=== PATIENT | male | born 1990 ===

== ENCOUNTER 2017-02-14 02:36 | Emergency (ER) | payer BC ==
[2017-02-14 02:50] VITALS: BP 155/64; PULSE 68; RESP 18; TEMP 97.5; O2SAT 100
--- NOTE | 2017-02-14 03:48 | ED PDOC ---
HPI: Chest Pain Time Seen by Provider: 02/14/17 02:59 Chief Complaint (Nursing): Chest Pain Chief Complaint (Provider): chest pain History Per: Patient History/Exam Limitations: no limitations Onset/Duration Of Symptoms: Days (1 week ) Current Symptoms Are (Timing): Still Present Additional Complaint(s): 26yo male with no PMHx or FHx presents to the ED with c/o constant chest pain x 1 week. Patient states pain is worse when he moves. Pain is non-radiating and not associated with SOB or diaphoresis. Denies any hx of smoking. Past Medical History Reviewed: Historical Data, Nursing Documentation, Vital Signs Vital Signs: Last Vital Signs Temp 97.5 F L 02/14/17 02:48 Pulse 68 02/14/17 02:48 Resp 18 02/14/17 02:48 BP 155/64 H 02/14/17 02:48 Pulse Ox 100 02/14/17 03:53 - Medical History PMH: No Chronic Diseases - Surgical History Surgical History: Hernia Repair (right inguinal) - Family History Family History: States: No Known Family Hx - Social History Current smoker - smoking cessation education provided: No Ex-Smoker (has not smoked in the last 12 months): No - Home Medications Home Medications: Ambulatory Orders Medication Instructions Recorded No Known Home Med [No Known Home 01/20/15 Med] - Allergies Allergies/Adverse Reactions: Allergies Allergy/AdvReac Type Severity Reaction Status Date / Time No Known Allergies Allergy Verified 01/20/15 20:46 Review of Systems ROS Statement: Except As Marked, All Systems Reviewed And Found Negative Constitutional: Positive for: Other (no diaphoresis ) Cardiovascular: Positive for: Chest Pain Respiratory: Negative for: Shortness of Breath Physical Exam - Reviewed Nursing Documentation Reviewed: Yes Vital Signs Reviewed: Yes - Physical Exam Appears: Positive for: Well, No Acute Distress Head Exam: Positive for: ATRAUMATIC, NORMAL INSPECTION, NORMOCEPHALIC Skin: Positive for: Normal Color, Warm, Dry Eye Exam: Positive for: Normal appearance, EOMI, PERRL ENT: Positive for: Normal ENT Inspection Neck: Positive for: Normal, Painless ROM, Supple Cardiovascular/Chest: Positive for: Regular Rate, Rhythm, Other (chest wall tender to palpation ). Negative for: Murmur, Tachycardia Respiratory: Positive for: Normal Breath Sounds. Negative for: Wheezing, Respiratory Distress Gastrointestinal/Abdominal: Positive for: Normal Exam, Bowel Sounds, Soft. Negative for: Tenderness Back: Positive for: Normal Inspection. Negative for: L CVA Tenderness, R CVA Tenderness Extremity: Positive for: Normal ROM. Negative for: Deformity, Swelling Neurologic/Psych: Positive for: Alert, Oriented. Negative for: Motor/Sensory Deficits - ECG O2 Sat by Pulse Oximetry: 100 Pulse Ox Interpretation: Normal (RA) Medical Decision Making Medical Decision Makin: Impression: musculoskeletal chest pain Plan: CXR EKG Motrin 600mg PO reassess 0346: CXR and EKG are normal. Patient is stable for discharge. Scribe Attestation: Documented by Cindy Kumar acting as a scribe for Juvenal Solo MD. Provider Scribe Attestation: All medical record entries made by the Scribe were at my direction and personally dictated by me. I have reviewed the chart and agree that the record accurately reflects my personal performance of the history, physical exam, medical decision making, and the department course for this patient. I have also personally directed, reviewed, and agree with the discharge instructions and disposition. Disposition - Clinical Impression Clinical Impression: Chest wall pain, Musculoskeletal chest pain - Patient ED Disposition Is Patient to be Admitted: No - Disposition Referrals: Asia Toribio MD [Primary Care Provider] - Disposition: Routine/Home Disposition Time: 03:46 Condition: STABLE Instructions: Chest Wall Pain (ED)
--- NOTE | 2017-02-14 10:34 | RAD ---
HISTORY: Chest pain. COMPARISON: 08/21/2013. FINDINGS: LUNGS: No active pulmonary disease. PLEURA: No significant pleural effusion identified, no pneumothorax apparent. CARDIOVASCULAR: Normal. OSSEOUS STRUCTURES: No significant abnormalities. VISUALIZED UPPER ABDOMEN: Normal. OTHER FINDINGS: None. IMPRESSION: No active disease. No significant interval change compared to the prior examination(s).
== END 2017-02-14 03:53 | disposition home or self-care (01) ==
LOC: H.ER 02:36
DX: R07.9 Chest pain, unspecified (principal); Z87.891 Personal history of nicotine dependence

== ENCOUNTER 2017-04-07 20:48 | Emergency (ER) | payer BC ==
[2017-04-07 21:42] VITALS: BMI 22.4
--- NOTE | 2017-04-07 21:44 | ED PDOC ---
Lower Extremity Pain/Injury Time Seen by Provider: 04/07/17 21:30 Chief Complaint (Nursing): Lower Extremity Problem/Injury Chief Complaint (Provider): Lower Extremity Problem/Injury History Per: Patient History/Exam Limitations: no limitations Onset/Duration Of Symptoms: Days (x2 days) Current Symptoms Are (Timing): Still Present Additional Complaint(s): 26 y/o male presents to the emergency department with a complaint of a right ankle and foot pain since yesterday.. Patient states he was trying to prevent someone else from falling but tripped himself causing the injury. He denies taking medications for the relief of pain. Patient denies any numbness or tingling to affected area. PMD: Dr. Catarino SHELDON Past Medical History Reviewed: Historical Data, Nursing Documentation, Vital Signs - Medical History PMH: No Chronic Diseases - Surgical History Surgical History: Hernia Repair (right inguinal) - Family History Family History: States: No Known Family Hx - Living Arrangements Living Arrangements: With Family - Social History Current smoker - smoking cessation education provided: No Alcohol: Occasional Drugs: Denies - Home Medications Home Medications: Ambulatory Orders Medication Instructions Recorded No Known Home Med [No Known Home 01/20/15 Med] - Allergies Allergies/Adverse Reactions: Allergies Allergy/AdvReac Type Severity Reaction Status Date / Time No Known Allergies Allergy Verified 01/20/15 20:46 Wells Criteria for PE - Wells Criteria for Pulmonary Embolism Clinical Signs and Symptoms of DVT: No P.E is #1 Diagnosis, or Equally Likely: No Heart Rate >100: No Immobilization at least 3 days;Surgery previous 4 weeks: No Previous, objectively diagnosed PE or DVT: No Hemoptysis: No Malignancy w/treatment within 6 months, or palliative: No Total Score: 0 Review of Systems ROS Statement: Except As Marked, All Systems Reviewed And Found Negative Musculoskeletal: Positive for: Foot Pain (Right foot and ankle pain) Physical Exam - Reviewed Nursing Documentation Reviewed: Yes Vital Signs Reviewed: Yes - Physical Exam Appears: Positive for: Well, Non-toxic, No Acute Distress Respiratory: Negative for: Respiratory Distress Extremity: Positive for: Other (Diffuse tenderness and swelling to right foot and ankle region, decreased range of motion of right ankle, normal distal sensation, normal capillary refill, palpable DP pulse, no calf swelling or tenderness, full range of motion of right hip and right knee) Neurologic/Psych: Positive for: Alert, Oriented - ECG O2 Sat by Pulse Oximetry: 98 (RA) Pulse Ox Interpretation: Normal - Other Rad Right foot and ankle x-ray X-Ray: Interpreted by Me, Viewed By Me X-Ray Interpretation: no acute fx, no dis Medical Decision Making Medical Decision Making: Time: 21:30 Initial Impression: 26 y/o male with pain to the right ankle Initial Plan: --Ankle Right 3 Views (RAD) --Foot Right 3 Views (RAD) --Pain meds declined Patient was seen by podiatry resident at bedside, Dr. La. X-rays reviewed by resident - no acute fx or dislocation noted. Ashford dressing applied to right foot and ankle region by resident. Crutches declined. Advised OTC NSAID' s for pain. Patient was referred to podiatry clinic for follow up. Scribe Attestation: Documented by Sheila Navarro acting as a scribe for Mariana Betancourt PA-C. Provider Scribe Attestation: All medical record entries made by the Scribe were at my direction and personally dictated by me. I have reviewed the chart and agree that the record accurately reflects my personal performance of the history, physical exam, medical decision making, and the department course for this patient. I have also personally directed, reviewed, and agree with the discharge instructions and disposition. Disposition - Clinical Impression Clinical Impression: Foot sprain, Ankle sprain - Patient ED Disposition Is Patient to be Admitted: No Counseled Patient/Family Regarding: Studies Performed, Diagnosis, Need For Followup, Rx Given - Disposition Referrals: Podiatry Clinic [Outside] Disposition: Routine/Home Disposition Time: 23:19 Condition: STABLE Additional Instructions: Ice, rest and elevate affected area. Advil or tylenol as needed for pain. Follow up with podiatry clinic in 2-3 days. Instructions: Ankle Sprain (ED), Foot Sprain (ED)
[2017-04-07 21:45] VITALS: O2SAT 98
[2017-04-07 21:54] VITALS: BP 120/82; PULSE 68; RESP 14; TEMP 98.4
--- NOTE | 2017-04-08 09:10 | CP.PCM.CON ---
History of Present Illness - History of Present Illness History of Present Illness: Patient is a 26 year old male with no significant past medical history, presenting to the ED this evening with a chief complaint of pain and swelling to his right foot. Patient states that he caught his foot on a step while walking down stairs and plantarflexed his foot on his ankle. He states that he has pain to the dorsal aspect of the foot. Patient states that he is able to walk but has difficulty sometimes. He denies any other symptoms or injuries at this time. Patient is ambulating in a regular sneaker at this time. Past Patient History - Infectious Disease Hx of Infectious Diseases: None - Past Social History Alcohol: Occasional Drugs: Denies - PSYCHIATRIC Hx Substance Use: No - SURGICAL HISTORY Hx Surgeries: Yes Hx Herniorrhaphy: Yes - ANESTHESIA Hx Anesthesia: Yes Hx Anesthesia Reactions: No Hx Malignant Hyperthermia: No Meds Allergies/Adverse Reactions: Allergies Allergy/AdvReac Type Severity Reaction Status Date / Time No Known Allergies Allergy Verified 01/20/15 20:46 Physical Exam - Constitutional Appears: Well, Non-toxic, No Acute Distress - Neurological Exam Neurological exam: Oriented x3 - Psychiatric Exam Psychiatric exam: Normal Affect, Normal Mood - Additional Findings Additional findings: DERMATOLOGIC: Skin is intact, no open lesions or rashes. There is is mild ecchymosis and discoloration to the right dorsal foot, particularly along the course of the EHL tendon. VASCULAR: DP/PT pulses 2/4, [employer]<3 seconds, skin temperature is normal. There is localized edema to the right forefoot, particularly at the dorsal aspect of the foot. NEUROLOGIC: Gross sensation intact, motor function intact ORTHOPEDIC: Pain on palpation to the dorsal aspect of the right foot and just distal to the ankle joint. There is mild pain with passive ROM of the ankle and digits. There is pain with resisted dorsiflexion ROM of the ankle. Results - Vital Signs Recent Vital Signs: Last Vital Signs Temp 98.4 F 04/07/17 21:30 Pulse 68 04/07/17 21:30 Resp 14 04/07/17 21:30 BP 120/82 04/07/17 21:30 Pulse Ox 98 04/07/17 23:42 Assessment & Plan - Assessment and Plan (Free Text) Assessment: 26 year old male with right foot sprain Plan: Patient seen and evaluated, d/w attending Dr. Gaines Right foot x-rays reviewed, show no acute fracture or dislocation, cannot rule out small avulsion injury Applied modified Ashford compression, surgical shoe Pt instructed to ice and elevate the RLE Patient instructed to refrain from strenuous activity and to limit walking at this time Patient to follow up with Dr. Gaines in his office or with podiatry clinic in one week
--- NOTE | 2017-04-08 10:04 | RAD ---
PROCEDURE: Right Foot Radiographs. HISTORY: trauma COMPARISON: None. FINDINGS: BONES: Normal. No fracture. JOINTS: Normal. SOFT TISSUES: Normal. OTHER FINDINGS: None. IMPRESSION: Normal right foot radiographs.
--- NOTE | 2017-04-08 10:07 | RAD ---
PROCEDURE: Right ankle Radiographs. HISTORY: trauma COMPARISON: None. FINDINGS: BONES: Normal. No fracture. JOINTS: Normal. No dislocation. SOFT TISSUES: Normal. OTHER FINDINGS: None. IMPRESSION: Normal right ankle radiographs.
== END 2017-04-07 23:32 | disposition home or self-care (01) ==
LOC: H.ER 20:48
DX: S93.601A Unspecified sprain of right foot, initial encounter (principal); W19.XXXA Unspecified fall, initial encounter; Y92.89 Other specified places as the place of occurrence of the external cause

== ENCOUNTER 2017-11-10 18:34 | Emergency (ER) | payer BC ==
[2017-11-10 18:34] VITALS: BMI 22.4
[2017-11-10 18:49] VITALS: BP 133/79; PULSE 87; RESP 16; TEMP 97.6; O2SAT 100
--- NOTE | 2017-11-10 20:03 | ED PDOC ---
HPI: Eye Injury/Pain Time Seen by Provider: 11/10/17 19:20 Chief Complaint (Nursing): Eye Problem Past Medical History Vital Signs: Last Vital Signs Temp 97.6 F 11/10/17 18:49 Pulse 87 11/10/17 18:49 Resp 16 11/10/17 18:49 BP 133/79 11/10/17 18:49 Pulse Ox 100 11/10/17 18:49 - Surgical History Surgical History: Hernia Repair (right inguinal) - Family History Family History: States: Unknown Family Hx - Home Medications Home Medications: Ambulatory Orders Medication Instructions Recorded Polymyxin/Trimethoprim Sulfate 1 drop XX Q6H 10 Days bottle 11/10/17 [Polytrim Ophth Soln] - Allergies Allergies/Adverse Reactions: Allergies Allergy/AdvReac Type Severity Reaction Status Date / Time No Known Allergies Allergy Verified 01/20/15 20:46 - ECG O2 Sat by Pulse Oximetry: 100 Disposition - Clinical Impression Clinical Impression: Bacterial conjunctivitis of both eyes - Patient ED Disposition Is Patient to be Admitted: No Counseled Patient/Family Regarding: Diagnosis, Need For Followup, Rx Given - Disposition Disposition: Routine/Home Disposition Time: 20:03 Condition: GOOD Prescriptions: Polymyxin/Trimethoprim Sulfate [Polytrim Ophth Soln] 1 drop XX Q6H 10 Days bottle Instructions: Conjunctivitis (ED)
== END 2017-11-10 20:40 | disposition home or self-care (01) ==
LOC: H.ER 18:34
DX: H10.89 Other conjunctivitis (principal)